=== PATIENT | male | born 1950 | race Caucasian/White ===

== ENCOUNTER 2017-04-23 20:12 | Emergency (ER) | payer SELFPAY ==
[~2017-04-23] VITALS: Ht 167.6 cm; Wt 52.8 kg
[2017-04-23 20:20] VITALS: Ht 167.6 cm; Wt 52.8 kg
[2017-04-23] MEDS ORDERED: ONDANSETRON 4 MG INJ IV STA (21:22)
[2017-04-23] MEDS ORDERED: SOD CHLORIDE 0.9% 1,000 ML IV ONE (21:30)
--- NOTE | 2017-04-23 21:34 | ERD ---
ER Documentation Chief Complaint Chief Complaint Pt reports drinking a sip of paint thinner and vomiting after HPI This a 66-year-old male who presents the emergency department today complaining of dizziness, nausea since 230 this afternoon after accidentally taking a sip of some "pain thinner". Patient states that he is at work and the pain center was in a water bottle similar to regular water bottle and he went to take a drink and took a large gulp and spit the rest out. Denies any abdominal pain, chest pain, cough, shortness of breath. ROS All systems reviewed and are negative except as per history of present illness. Allergies Allergies: Coded Allergies: No Known Allergy (Unverified , 04/23/17) PMhx/Soc Medical and Surgical Hx: pt denies Medical Hx, pt denies Surgical Hx History of Surgery: No Anesthesia Reaction: No Hx Neurological Disorder: No Hx Respiratory Disorders: No Hx Cardiac Disorders: No Hx Psychiatric Problems: No Hx Miscellaneous Medical Probl: No Hx Alcohol Use: No Hx Substance Use: No Hx Tobacco Use: No Smoking Status: Never smoker Physical Exam Vitals Vital Signs Date Time Temp Pulse Resp B/P Pulse Ox O2 Delivery O2 Flow Rate FiO2 04/23/17 20:20 98.3 92 16 147/78 100 Physical Exam Const: NAD Head: Atraumatic Eyes: Normal Conjunctiva ENT: Normal External Ears, Nose and Mouth. Throat no erythema no exudate no vesicles Neck: Full range of motion..~ No meningismus. Resp: Clear to auscultation bilaterally Cardio: Regular rate and rhythm, no murmurs Abd: Soft, non tender, non distended. Normal bowel sounds Skin: No petechiae or rashes Back: No midline or flank tenderness Ext: No cyanosis, or edema Neur: Awake and alert Psych: Normal Mood and Affect Results 24 hrs Current Medications Medications (Trade) Dose Ordered Sig/Natalie Route PRN Reason Start Time Stop Time Status Last Admin Dose Admin Ondansetron HCl 4 mg 4 mg ONCE STAT IV 04/23/17 21:22 04/23/17 21:23 DC 04/23/17 21:44 Sodium Chloride (NS) 1,000 ml @ 1,000 mls/hr Q1H ONCE IV 04/23/17 21:30 04/23/17 22:29 DC 04/23/17 21:44 Meclizine HCl (Antivert) 25 mg ONCE ONCE PO 04/23/17 23:00 04/23/17 23:01 DC 04/23/17 23:26 DIAGNOSTIC IMAGING REPORT Patient: MORGAN GUTIERREZ : 1950 Age: 66 Sex: M MR #: [id number] DOS: 04/23/17 2248 Ordering MD: DESHAWN HERRMANN MD Location: [facility] Room/Bed: PROCEDURE: CT Brain without contrast. CLINICAL INDICATION: Syncope TECHNIQUE: Routine CT scan of the brain was performed on a high resolution multi detector scanner without intravenous contrast. One or more of the following dose reduction techniques were used: Automated exposure control; Adjustment of the mA and/or kV according to patient size; Use of iterative reconstruction technique. CTDI = 45 mGy. DLP = 720 mGy-cm. DICOM images are available. COMPARISON: No prior relevant examinations are available for comparison. FINDINGS: Hemorrhage: No evidence of intracranial hemorrhage. Acute ischemic changes: No evidence of acute ischemic changes. Mass effect: None. Parenchymal volume: Mild central parenchymal volume loss is evident. Ventricular system: Concordant with parenchymal volume. Chronic changes: There are multiple areas of low attenuation change within the supratentorial white matter most compatible with moderate chronic microvascular ischemic changes. Atherosclerotic calcifications of the cavernous portions of both internal carotid arteries are present. Extracranial soft tissues: Unremarkable. Calvarium: No fractures. Paranasal sinuses: Visualized paranasal sinuses are clear. Mastoid air cells: Visualized mastoid air cells are clear. IMPRESSION: No acute intracranial abnormalities. Moderate chronic-appearing microvascular ischemic changes of the supratentorial white matter. RPTAT: AADD .Deshawn Hill MD, MD Date Time Electronically viewed and signed by .Deshawn Hill MD, on 04/23/2017 23:24 .B/ CC: DESHAWN HERRMANN DIAGNOSTIC IMAGING REPORT Patient: MORGAN GUTIERREZ : 1950 Age: 66 Sex: M MR #: [id number] DOS: 04/23/17 2248 Ordering MD: DESHAWN HERRMANN MD Location: [facility] Room/Bed: PROCEDURE: XR Chest. CLINICAL INDICATION: Patient experiencing Syncope. TECHNIQUE: Single frontal view of the chest was obtained COMPARISON: None FINDINGS: The heart and mediastinum are within normal limits. The pulmonary arteries appear mildly enlarged. There are no focal consolidations , pleural effusions, or pneumothorax. Degenerative changes of the spine are present. IMPRESSION: 1. No acute cardiopulmonary disease. 2. Mildly enlarged pulmonary arteries, which may be seen with pulmonary hypertension. RPTAT:AAJJ Brittney Ramos Physician Date Time Electronically viewed and signed by Brittney Ramos Physician on 04/23/2017 23:33 QL/ CC: DESHAWN HERRMANN Procedures/MDM This 66-year-old male who presents to the emergency department today complaining of an accidental overdose with [employer] primers. I placed a call to poison control who indicated that the primary concern for the patient would be aspiration. Patient is afebrile and otherwise well-appearing. He has not had a cough. Patient is complaining of dizziness and nausea. I gave the patient IV fluids and Zofran as well as obtained an EKG EKG read and interpreted by Dr. Vieira: Rate [address] elevation. No QT prolongation. Normal sinus rhythm. Patient got up to use the restroom and he felt very dizzy. I discussed the patient then with Dr. Herrmann who has recommended laboratory workup as well as a head CT scan and chest x-ray. Head CT noncontrast shows no acute intracranial abnormalities. There are moderate chronic appearing microvascular ischemic changes. There is atherosclerotic calcifications of the cavernous portions of both internal carotid arteries. Chest x-ray shows no acute cardiopulmonary disease. There are markedly enlarged pulmonary arteries which may be seen with pulmonary hypertension. There is no focal consolidation, pleural effusion or pneumothorax. Laboratory workup was pending at time of signout to Dr. Herrmann. Any further orders placed will be placed by Dr. Herrmann. Symptoms at this time is consistent with accidental overdose and dizziness. Departure Diagnosis: Primary Impression: Accidental overdose Encounter type: initial encounter Qualified Code: T50.901A - Accidental overdose, initial encounter Additional Impression: Dizziness Condition: EROS Sanches PA-C Apr 23, 2017 21:34
[2017-04-23] MEDS ORDERED: MECLIZINE 12.5 MG TAB PO ONE (23:00)
--- NOTE | 2017-04-23 23:25 | RADRPT ---
PROCEDURE: CT Brain without contrast. CLINICAL INDICATION: Syncope TECHNIQUE: Routine CT scan of the brain was performed on a high resolution multi detector scanner without intravenous contrast. One or more of the following dose reduction techniques were used: Auto mated exposure control; Adjustment of the mA and/or kV according to patient size; Use of iterative r econstruction technique. CTDI = 45 mGy. DLP = 720 mGy-cm. DICOM images are available. COMPARISON: No prior relevant examinations are available for comparison. FINDINGS: Hemorrhage: No evidence of intracranial hemorrhage. Acute ischemic changes: No evidence of acute ischemic changes. Mass effect: None. Parenchymal volume: Mild central parenchymal volume loss is evident. Ventricular system: Concordant with parenchymal volume. Chronic changes: There are multiple areas of low attenuation change within the supratentorial white matter most compatible with moderate chronic microvascular ischemic changes. Atherosclerotic calcifications of the cavernous portions of both internal carotid arteries are prese nt. Extracranial soft tissues: Unremarkable. Calvarium: No fractures. Paranasal sinuses: Visualized paranasal sinuses are clear. Mastoid air cells: Visualized mastoid air cells are clear. IMPRESSION: No acute intracranial abnormalities. Moderate chronic-appearing microvascular ischemic changes of the supratentorial white matter. RPTAT: AADD .Deshawn Hill MD, MD Date Time Electronically viewed and signed by .Deshawn Hill MD, MD on 04/23/2017 23:24 .B/
--- NOTE | 2017-04-23 23:33 | RADRPT ---
PROCEDURE: XR Chest. CLINICAL INDICATION: Patient experiencing Syncope. TECHNIQUE: Single frontal view of the chest was obtained COMPARISON: None FINDINGS: The heart and mediastinum are within normal limits. The pulmonary arteries appear mildly enlarged. There are no focal consolidations, pleural effusions, or pneumothorax. Degenerative changes of the spine are present. IMPRESSION: 1. No acute cardiopulmonary disease. 2. Mildly enlarged pulmonary arteries, which may be seen with pulmonary hypertension. RPTAT:AAJJ Physician Diana Date Time Electronically viewed and signed by Physician Diana on 04/23/2017 23:33 QL/
[2017-04-24 00:36] LABS: BASOPHIL # 0.1 10^3/ul (0.0-0.1); BASOPHILS % 0.5 % (0.0-2.0); EOSINOPHILS # 0.2 10^3/ul (0.0-0.5); EOSINOPHILS % 2.1 % (0.0-7.0); HEMATOCRIT 40.5 % (42.0-52.0); HEMOGLOBIN 13.9 g/dl (14.0-18.0); MEAN CORPUSCULAR HEMOGLOBIN 29.9 pg (29.0-33.0); MEAN CORPUSCULAR HGB CONC 34.3 g/dl (32.0-37.0); MEAN CORPUSCULAR VOLUME 87.1 fl (82.0-101.0); MEAN PLATELET VOLUME 9.4 fl (7.4-10.4); MONOCYTE # 0.8 10^3/ul (0.3-0.9); MONOCYTES % 7.5 % (0.0-11.0); NEUTROPHILS % 59.7 % (39.0-77.0); PLATELET COUNT 253 10^3/UL (140-415); RED BLOOD COUNT 4.65 10^6/ul (4.70-6.10); RED CELL DISTRIBUTION WIDTH 13.2 % (11.5-14.5); WHITE BLOOD COUNT 10.1 10^3/ul (4.8-10.8)
[2017-04-24 01:12] LABS: ANION GAP 12 (8-16); BLOOD UREA NITROGEN 20 mg/dl (7-20); CALCIUM 8.9 mg/dl (8.4-10.2); CARBON DIOXIDE 28 mmol/L (21-31); CHLORIDE 103 mmol/L (97-110); CREATININE 0.83 mg/dl (0.61-1.24); GLUCOSE 116 mg/dl (70-220); POTASSIUM 3.8 mmol/L (3.5-5.1); SODIUM 139 mmol/L (135-144)
[2017-04-24 01:24] LABS: TROPONIN-I < 0.012 ng/ml (0.00-0.12)
[2017-04-24] MEDS ORDERED: MECL12.574 PO (02:14)
[2017-04-24 02:30] VITALS: BP 110/74; PULSE 74; RESP 20; TEMP 97.8
== END 2017-04-24 02:33 | disposition home or self-care (01) ==
LOC: FTE 20:12
DX: T65.6X1A Toxic effect of paints and dyes, not elsewhere classified, accidental (unintentional), initial encounter (principal); R42 Dizziness and giddiness; R11.10 Vomiting, unspecified
CPT/HCPCS: 70450; 71010; 80048; 82962; 83735; 84484; 85025; 93005; J2405; J7030; 96374